=== PATIENT | male | born 1985 | race Hispanic/Latino ===

== ENCOUNTER 2023-10-18 02:40 | Emergency (ER) | payer BC, SELFPAY ==
[2023-10-18 02:43] VITALS: BP 176/128
--- NOTE | 2023-10-18 03:19 | ED.GENMED ---
History of Present Illness
General
Chief Complaint: Throat Problem
Source: patient
Exam Limitations: none
Time Seen by Provider: 10/18/23 03:12
Travel History
Have you had any contact with someone who has COVID-19?: No
Do you have any symptoms of coronavirus? Fever > 100 degrees, chills, cough, shortness of breath, sore throat, loss of taste or smell, muscle aches, or headache?: No
History of Present Illness
History of Present Illness:
See MDM
Past History
Past History
ED Past Medical History: Asthma, HTN and Other (Cellulitis)
ED Past Surgical History: None
Social History
Tobacco: Non-smoker
Alcohol: Occasional
Drug: None
Personal:
Living: with family
Phy Exam
Physical Exam
Physical Exam:
See MDM
Course
Orders/Labs/Results
Orders:
Orders
10/18/23 02:48
Rapid Strep Group A Urgent
HIGINIO Source: Throat/Pharynx
Specimen Description:
Date Specimen was Collected: 10/18/23
Time Specimen was Collected: 02:41
10/18/23 03:12
Dexamethasone Pf [Decadron] 10 mg PO NOW STA
10/18/23 03:15
Amoxicillin [Amoxil] 500 mg PO NOW STA
Ibuprofen [Motrin] 600 mg PO NOW STA
Vital Signs
Initial and Last Documented VS:
Initial Vital Signs
Temp Pulse Resp BP Pulse Ox
99 F 106 20 176/128 100
10/18/23 02:43 10/18/23 02:43 10/18/23 02:43 10/18/23 02:43 10/18/23 02:43
Last Documented Vital Signs
Temp Pulse Resp BP Pulse Ox
99 F 106 20 176/128 100
10/18/23 02:43 10/18/23 02:43 10/18/23 02:43 10/18/23 02:43 10/18/23 02:43
MDM/Problems Addressed
Differential Diagnosis Includes:
HPI and MDM Narrative:
38-year-old male presenting with 2 days of sore throat. Patient is worried because the swelling is getting worse. Patient has a foreign body sensation in his throat when he lays back. It is hard to swallow due to pain. He denies fever or cough
On exam, patient is sitting in bed comfortably but has enlarged uvula. Posterior pharynx with erythema. Tonsils are edematous but no exudate. Uvula is midline
Strep throat testing obtained but will treat as uvulitis with amoxicillin. Patient given dose of Motrin and Decadron
Physical exam
General: Well appearing and non-toxic
HEENT: protecting airway. Posterior pharynx erythematous. Uvula midline
Neck: appears supple
CV: No evidence of cyanosis
Resp: No accessory muscle use
Abd: Non-distended
Extremities: No deformities
Neuro: alert
Psych: Normal affect
Skin: Intact
Problems Addressed including Acute and Chronic Conditions affecting care:
1. Strep throat
Acuity: acute
Prognosis: stable
Details: Clinical concern for strep throat versus uvulitis. Strep throat test positive. Will treat with amoxicillin. Patient given dose of Decadron
Differential Diagnosis (but not limited to): Viral pharyngitis, strep throat, uvulitis
Drug therapy (if applicable): OTC meds, please see d/c instruction regarding Rx drugs
Amount and/or Complexity of Data Reviewed
Clinical info obtained from: Patient
External data reviewed: N/A
Labs I independently reviewed (but not limited to): Strep throat test positive
Radiology: N/A
Pulse Ox: not hypoxic
EKG independently reviewed: N/A
Heatset Winder Operator: N/A
Critical Care: N/A
Risk of Complication:
Social Determinants of health: Good social support
Discussed with other providers: N/A
Escalation of Care includes Admit/Obs: After being observed in the Emergency Department, pt stable for discharge.
Occasional wrong word or 'sound a like' substitutions may have occurred due to the inherent limitations of voice recognition software. Read the chart carefully and recognize, using context, where substitutions have occurred.
*Critical Care Note
Total Time (30-74mins, 75-104mins- exclusive of procedures): Not Applicable
ED Attending Note
-
Portions of this chart may have been created with voice recognition software.� Occasional wrong word or��sound alike� substitutions may have occurred due to the inherent limitations of voice recognition software.
Discharge Plan
Departure
Patient Disposition: Home (Routine Discharge)
Date of Disposition: 10/18/23
Time of Disposition: 03:31
Patient with high blood pressure during this ER visit?: Yes
Discharge Problem:
Strep throat
Instructions: Strep Throat (DC), BLOOD PRESSURE
Prescriptions:
New
methylprednisolone [Medrol (Patrick)] 4 mg tablets,dose pack
See Rx Instructions .ROUTE .COMPLEX Qty: 21 0RF
Rx Instructions:
orally per package directions
amoxicillin 500 mg capsule
500 mg PO Q12H Qty: 14 0RF
No Action
cephalexin 500 MG capsule
500 mg PO QID Qty: 27 0RF
Activity Restrictions/Additional Instructions:
Please return for any worsening symptoms.
You may return at any time if you have further concerns.
Please follow up with your doctor at the first available appointment, preferably this week.
Thank you for choosing [facility].
Interventions
Interventions:
*Risk Screen - Suicide Last Done: 10/18/23 02:43
*Neglect/Abuse Screening Last Done: 10/18/23 02:43
[2023-10-18] MEDS: AMOXIL 500 MG PO (03:26)
[2023-10-18] MEDS: DECADRON 10 MG PO (03:26)
[2023-10-18] MEDS: MOTRIN 600 MG PO (03:26)
[2023-10-18 03:30] VITALS: BP 134/75
== END 2023-10-18 03:56 | disposition home or self-care (01) ==
LOC: EMR 02:40
PROVIDERS: EMERGENCY PHYSICIAN Student in an Organized Health Care Education/Training Program; FAMILY PHYSICIAN Physician Assistant Medical
DX: J02.0 Streptococcal pharyngitis (principal); I10 Essential (primary) hypertension
CPT/HCPCS: 99283; 87070; 87880

== ENCOUNTER 2024-02-29 03:03 | Emergency (ER) | payer BC, SELFPAY ==
[2024-02-29 03:04] VITALS: BP 192/118
[2024-02-29 03:13] VITALS: BMI 38.4
[2024-02-29 03:18] VITALS: BP 176/96
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
[2024-02-29 03:46] LABS: Urine Albumin Negative (Neg - Trace); Urine Bilirubin Negative (Negative); Urine Character Clear (Clear); Urine Color Yellow; Urine Glucose Negative (Negative); Urine Ketone Negative (Negative); Urine Leukocyte Negative (Negative); Urine Nitrite Negative (Negative); Urine Occult Blood Negative (Negative); Urine Urobilinogen Negative (Neg - 1+)
[2024-02-29] MEDS: TORADOL 30 MG IM (03:58)
[2024-02-29] MEDS: FLEXERIL 10 MG PO (04:34)
[2024-02-29] MEDS: CITROMA 300 ML PO (04:34)
== END 2024-02-29 04:44 | disposition home or self-care (01) ==
LOC: EMR 03:03
PROVIDERS: EMERGENCY PHYSICIAN Student in an Organized Health Care Education/Training Program; FAMILY PHYSICIAN Family Medicine
DX: M54.50 Low back pain, unspecified (principal); R10.9 Unspecified abdominal pain; K59.09 Other constipation; G89.29 Other chronic pain; I10 Essential (primary) hypertension; J45.909 Unspecified asthma, uncomplicated; Z86.16 Personal history of COVID-19; Z91.013 Allergy to seafood
CPT/HCPCS: 99284; 96372; 74176; 81003